=== PATIENT | female | born 1945 | race Caucasian/White ===

== ENCOUNTER 2022-08-13 19:12 | Emergency (ER) | payer MEDICARE, BC, SELFPAY ==
--- NOTE | ~2022-08-13 | CT_ITS ---
CT HEAD WITHOUT IV CONTRAST CT CERVICAL SPINE WITHOUT IV CONTRAST CT MAXILLOFACIAL WITHOUT IV CONTRAST INDICATION: Fall, LOC COMPARISON: None TECHNIQUE: Multidetector CT acquisitions of the head, maxillofacial region, and cervical spine were obtained without IV contrast. Multiplanar reformats were acquired and utilized for image interpretation. DLP: 1313 mGy-cm FINDINGS: HEAD: Small high density foci within the left frontal lobe with minor surrounding edema is most consistent with hemorrhagic foci. Minimal eccentric thickening of the falx anteriorly to the left of midline suspicious for minor subdural hematoma. Tiny hemorrhagic foci right frontal lobe as well. No overlying fracture. No extra-axial collection otherwise. No midline shift or mass effect. Chairez to white matter differentiation is diffusely maintained without evidence of an evolved acute territorial infarct. The basilar cisterns are preserved. Subcortical and periventricular white matter hypoattenuation is suggestive of mild small vessel ischemic disease. No soft tissue or osseous abnormality. The mastoid air cells and paranasal sinuses are well-aerated. MAXILLOFACIAL: The mandible, maxilla, pterygoid plates, nasal bones, zygomatic arches, paranasal sinus leyva, and bony orbits are intact. No acute osseous abnormality within the maxillofacial region. The paranasal sinuses and mastoid air cells remain well-aerated. The globes and extra-ocular musculature is intact. No significant soft tissue findings. CERVICAL SPINE: There is anatomic alignment of the vertebral bodies and posterior elements. Relative pronounced diffuse advanced spondylosis throughout. There is no acute fracture and there is no acute subluxation. The craniocervical and atlantoaxial articulations are normal. There is no prevertebral soft tissue swelling. No significant soft tissue abnormality within the neck. The visualized lung apices are clear. CT/CT facial bones wo IV con IMPRESSION: 1. Small bifrontal hemorrhagic foci left greater than right. Small subdural hematoma. No significant mass effect 2. No acute osseous abnormality within the cervical spine. 3. No acute osseous abnormality within the maxillofacial region. This critical result was called by sheet rock hanger staff at approximately 9:45 PM on the date of exam
--- NOTE | ~2022-08-13 | CT_ITS ---
CT HEAD WITHOUT IV CONTRAST CT CERVICAL SPINE WITHOUT IV CONTRAST CT MAXILLOFACIAL WITHOUT IV CONTRAST INDICATION: Fall, LOC COMPARISON: None TECHNIQUE: Multidetector CT acquisitions of the head, maxillofacial region, and cervical spine were obtained without IV contrast. Multiplanar reformats were acquired and utilized for image interpretation. DLP: 1313 mGy-cm FINDINGS: HEAD: Small high density foci within the left frontal lobe with minor surrounding edema is most consistent with hemorrhagic foci. Minimal eccentric thickening of the falx anteriorly to the left of midline suspicious for minor subdural hematoma. Tiny hemorrhagic foci right frontal lobe as well. No overlying fracture. No extra-axial collection otherwise. No midline shift or mass effect. Chairez to white matter differentiation is diffusely maintained without evidence of an evolved acute territorial infarct. The basilar cisterns are preserved. Subcortical and periventricular white matter hypoattenuation is suggestive of mild small vessel ischemic disease. No soft tissue or osseous abnormality. The mastoid air cells and paranasal sinuses are well-aerated. MAXILLOFACIAL: The mandible, maxilla, pterygoid plates, nasal bones, zygomatic arches, paranasal sinus leyva, and bony orbits are intact. No acute osseous abnormality within the maxillofacial region. The paranasal sinuses and mastoid air cells remain well-aerated. The globes and extra-ocular musculature is intact. No significant soft tissue findings. CERVICAL SPINE: There is anatomic alignment of the vertebral bodies and posterior elements. Relative pronounced diffuse advanced spondylosis throughout. There is no acute fracture and there is no acute subluxation. The craniocervical and atlantoaxial articulations are normal. There is no prevertebral soft tissue swelling. No significant soft tissue abnormality within the neck. The visualized lung apices are clear. CT/CT head/brain wo IV con IMPRESSION: 1. Small bifrontal hemorrhagic foci left greater than right. Small subdural hematoma. No significant mass effect 2. No acute osseous abnormality within the cervical spine. 3. No acute osseous abnormality within the maxillofacial region. This critical result was called by geography department chair staff at approximately 9:45 PM on the date of exam
--- NOTE | ~2022-08-13 | CT_ITS ---
CT HEAD WITHOUT IV CONTRAST CT CERVICAL SPINE WITHOUT IV CONTRAST CT MAXILLOFACIAL WITHOUT IV CONTRAST INDICATION: Fall, LOC COMPARISON: None TECHNIQUE: Multidetector CT acquisitions of the head, maxillofacial region, and cervical spine were obtained without IV contrast. Multiplanar reformats were acquired and utilized for image interpretation. DLP: 1313 mGy-cm FINDINGS: HEAD: Small high density foci within the left frontal lobe with minor surrounding edema is most consistent with hemorrhagic foci. Minimal eccentric thickening of the falx anteriorly to the left of midline suspicious for minor subdural hematoma. Tiny hemorrhagic foci right frontal lobe as well. No overlying fracture. No extra-axial collection otherwise. No midline shift or mass effect. Chairez to white matter differentiation is diffusely maintained without evidence of an evolved acute territorial infarct. The basilar cisterns are preserved. Subcortical and periventricular white matter hypoattenuation is suggestive of mild small vessel ischemic disease. No soft tissue or osseous abnormality. The mastoid air cells and paranasal sinuses are well-aerated. MAXILLOFACIAL: The mandible, maxilla, pterygoid plates, nasal bones, zygomatic arches, paranasal sinus leyva, and bony orbits are intact. No acute osseous abnormality within the maxillofacial region. The paranasal sinuses and mastoid air cells remain well-aerated. The globes and extra-ocular musculature is intact. No significant soft tissue findings. CERVICAL SPINE: There is anatomic alignment of the vertebral bodies and posterior elements. Relative pronounced diffuse advanced spondylosis throughout. There is no acute fracture and there is no acute subluxation. The craniocervical and atlantoaxial articulations are normal. There is no prevertebral soft tissue swelling. No significant soft tissue abnormality within the neck. The visualized lung apices are clear. CT/CT cervical spine wo IV con IMPRESSION: 1. Small bifrontal hemorrhagic foci left greater than right. Small subdural hematoma. No significant mass effect 2. No acute osseous abnormality within the cervical spine. 3. No acute osseous abnormality within the maxillofacial region. This critical result was called by litigation counsel staff at approximately 9:45 PM on the date of exam
--- NOTE | ~2022-08-13 | XR_ITS ---
EXAMINATION: XR SHOULDER, LEFT CLINICAL INFORMATION: Pain. COMPARISON: None TECHNIQUE: Three views of the left shoulder. FINDINGS: No fracture. Glenohumeral and acromioclavicular alignment is anatomic. Small marginal osteophytes along the acromioclavicular and glenohumeral joints. No abnormal soft tissue calcifications. XR/XR shoulder LT min 2V IMPRESSION: No acute fracture or dislocation.
[2022-08-13 19:20] VITALS: BP 154/68; PULSE 71; RESP 18; TEMP 36.7; O2SAT 97
--- NOTE | 2022-08-13 19:22 | ECG_ITS ---
Test Reason : SYNCOPE Blood Pressure : / mmHG Vent. Rate : 071 BPM Atrial Rate : 071 BPM P-R Int : 182 ms QRS Dur : 082 ms QT Int : 430 ms P-R-T Axes : 064 013 098 degrees QTc Int : 467 ms Normal sinus rhythm Right atrial enlargement Nonspecific T wave abnormality Abnormal ECG No previous ECGs available Referred By: Cami Mc Electronically Signed By:CHRISTIANO MONDRAGON MD
[2022-08-13 19:24] VITALS: BP 148/74; PULSE 88; O2SAT 100; BMI 24.7
--- NOTE | 2022-08-13 19:34 | ED_ITS ---
HPI - Fall General Chief Complaint: Fall Stated Complaint: FALL, +HEADSTRIKE, +LOC. -THINNERS Time Seen by Provider: 08/13/22 19:18 Source: patient and EMS Mode of arrival: EMS History of Present Illness HPI Narrative: 76-year-old female with history of hypertension arrives via EMS after 3hr extraction from [place] after she fell. Patient is here visiting her daughter from [place]. She states that she was coming down the hill and started going faster and faster and then I fell forward and struck my head on a rock patient denies pain on any hands arms or chest wall at this time. Patient only reports aspirin. As per EMS report patient had to be extracted via ATVs. Related Data Allergies Allergy/AdvReac Type Severity Reaction Status Date / Time No Known Allergies Allergy Verified 08/13/22 19:29 Review of Systems 2 Review of Systems: Pertinent positives and negatives as stated in HPI 10 point review of systems is otherwise negative. PMFSH Past Medical History Source: nursing notes reviewed Social History Social History Advance Directives: No Physical Exam Vital Signs: Vital Signs: Last Vital Signs Temp 97.8 F 08/13/22 21:06 Pulse 71 08/13/22 21:06 Resp 16 08/13/22 21:06 BP 165/75 H 08/13/22 21:06 Pulse Ox 97 08/13/22 21:06 O2 Del Method 08/13/22 21:06 BMI result Body Mass Index 24.7 Blood Thinners: 81 mg aspirin PRIMARY SURVEY A: Airway intact B: Bilateral, symmetrical breath sounds C: Bilateral DP/PT/femoral/radial palpable pulses symmetrical, ABD soft/ non- distended, PELVIS: stable/non-tender BP: 154/60 D: GCS-15, but patient is noted to be repeating herself, motor and sensory grossly intact, FAST not performed E: No back abrasions, no cervical/thoracic/lumbar vertebral tenderness/step-off, JAYLEN- deferred SECONDARY SURVEY HEAD: NC/AT, +laceration left forehead/contusions noted; EARS: no hemotympanum; EYES: 2mm PERRLA, EOMI NOSE: no deformity, wnl; OROPHARYNX: able to open mouth and tongue is midline without laceration FACE: without abrasions, lacerations, contusions, or ttp NECK: c-collar, no cervical spine tenderness; CHEST WALL/THORAX: no clavicle deformity or ttp, no sternum or rib deformity, no crepitus and no ttp RUE: fROM at shoulder/elbow/wrist and neurovascular intact, no deformity, no abrasions/lacerations, cap refill <3s LUE: fROM at shoulder/elbow/wrist and neurovascular intact, no deformity, no abrasions/lacerations, cap refill <3s ABD: soft, non-tender, non-distended PELVIS: stable, non-tender : external genitalia grossly within normal limits RLE: fROM at hip/knee/ankle neurovascular intact LLE: fROM at hip/knee/ankle neurovascular intact ROS: 10 point review of systems has been completed. Please refer to HPI for pertinent negative and positives. A/P: 76-year-old female with history and clinical presentation consistent with traumatic fall involving LOC and [place] 3 [place] in [place] emergency room. Neuro appears to be intact although patient is noted to be repeating herself but otherwise GCS-15 and alert and oriented x4. - Labs (CBC, CMP, Troponin, PT/INR, PTT) - CT: head, c-spine, Thorax w/wo contrast and T-spine recon, Abd/pelvis w/wo contrast and L-spine recon - XR <shoulder> - Urinalysis - Tetanus - Consult <[facility]> Course Course Course Narrative: 76-year-old female with history and clinical presentation consistent with mechanical fall resulting in loss of consciousness and on review of all investigations patient has a reactive leukocytosis with CT scan that demonstrates small bifrontal hemorrhagic foci with the left greater than the right as well as a small subdural hematoma. I discussed the case with [facility], Dr. Borden, who accepts transfer as a trauma consult. Patient was informed of all results and the plan for transfer and she is agreeable and understands. MDM - Fall Lab Data Result diagrams: 08/13/22 19:40 08/13/22 19:40 Labs: Lab Results 08/13/22 08/13/22 08/13/22 Range/Units 19:40 19:40 19:40 WBC 13.4 H (4.8-10.8) X10*3/uL RBC 4.34 (4.20-5.50) X10*6/uL Hgb 13.1 (12.0-16.0) g/dl Hct 38.5 (37.0-47.0) % MCV 88.7 (80.0-98.0) fL MCH 30.2 (27.0-33.0) pg MCHC 34.0 (31.0-35.0) g/dl RDW 13.0 (11.0-16.0) % Plt Count 314 (160-400) X10*3/uL MPV 9.4 (9.4-12.3) fL Immature Gran % (Auto) 0.3 (0.0-0.4) % Neut % (Auto) 81.4 H (45-73) % Lymph % (Auto) 11.5 L (20-40) % [place] % (Auto) 6.0 (2-11) % Eos % (Auto) 0.4 (0-4) % Baso % (Auto) 0.4 (0-2) % Lymph # (Auto) 1.5 (1.2-4.9) X10*3/uL [place] # (Auto) 0.8 (0.1-1.2) X10*3/uL Eos # (Auto) 0.1 (0.0-0.4) X10*3/uL Baso # (Auto) 0.1 (0.0-0.2) X10*3/uL Abs Immat Gran (auto) 0.04 H (0.00-0.03) X10*3/uL Absolute Neuts (auto) 10.9 H (2.0-8.3) x10*3/uL Absolute Nucleated RBC 0.000 (0.0-0.012) X10*3/uL Nucleated RBC % (auto) 0.0 (0.0-0.2) /100WBC PT 11.1 (10.0-13.1) SEC INR 1.0 (0.9-1.1) Sodium 142 (135-145) mmol/L Potassium 3.5 (3.3-5.1) mmol/L Chloride 106 (96-108) mmol/L Carbon Dioxide 22 (22-29) mmol/L Anion Gap 18 (12-20) BUN 26 H (9-16) mg/dL Creatinine 0.85 (0.5-1.4) mg/dL Estim Creat Clear Calc 51.3 Estimated GFR > 60 Random Glucose 92 (60-115) mg/dL Calcium 9.2 (8.4-10.2) mg/dL Total Bilirubin 0.3 (0.0-1.0) mg/dL AST 22 (5-31) U/L ALT 17 (0-31) U/L Alkaline Phosphatase 98 (39-117) U/L Total Creatine Kinase 82 (26-140) U/L Troponin I High Sens (<3.5-17.0) ng/L Total Protein 6.8 (6.5-8.0) g/dL Albumin 4.6 (3.5-5.0) g/dL Urine Color Urine Appearance Urine pH (5.0-9.0) Ur Specific [place] (1.005-1.025) Urine Protein (Neg-Trace) mg/dL Urine Glucose (UA) (Negative) mg/dL Urine Ketones (Negative) mg/dL Urine Blood (Negative) Urine Nitrite (Negative) Ur Leukocyte Esterase (Negative) Urine RBC (0-2) /HPF Urine WBC (0-5) /HPF Ur Squamous Epith Cells (0-2) /HPF Urine Bacteria (None Seen) Hyaline Casts (0-2) /LPF 08/13/22 08/13/22 Range/Units 19:40 21:09 WBC (4.8-10.8) X10*3/uL RBC (4.20-5.50) X10*6/uL Hgb (12.0-16.0) g/dl Hct (37.0-47.0) % MCV (80.0-98.0) fL MCH (27.0-33.0) pg MCHC (31.0-35.0) g/dl RDW (11.0-16.0) % Plt Count (160-400) X10*3/uL MPV (9.4-12.3) fL Immature Gran % (Auto) (0.0-0.4) % Neut % (Auto) (45-73) % Lymph % (Auto) (20-40) % [place] % (Auto) (2-11) % Eos % (Auto) (0-4) % Baso % (Auto) (0-2) % Lymph # (Auto) (1.2-4.9) X10*3/uL [place] # (Auto) (0.1-1.2) X10*3/uL Eos # (Auto) (0.0-0.4) X10*3/uL Baso # (Auto) (0.0-0.2) X10*3/uL Abs Immat Gran (auto) (0.00-0.03) X10*3/uL Absolute Neuts (auto) (2.0-8.3) x10*3/uL Absolute Nucleated RBC (0.0-0.012) X10*3/uL Nucleated RBC % (auto) (0.0-0.2) /100WBC PT (10.0-13.1) SEC INR (0.9-1.1) Sodium (135-145) mmol/L Potassium (3.3-5.1) mmol/L Chloride (96-108) mmol/L Carbon Dioxide (22-29) mmol/L Anion Gap (12-20) BUN (9-16) mg/dL Creatinine (0.5-1.4) mg/dL Estim Creat Clear Calc Estimated GFR Random Glucose (60-115) mg/dL Calcium (8.4-10.2) mg/dL Total Bilirubin (0.0-1.0) mg/dL AST (5-31) U/L ALT (0-31) U/L Alkaline Phosphatase (39-117) U/L Total Creatine Kinase (26-140) U/L Troponin I High Sens 5.3 (<3.5-17.0) ng/L Total Protein (6.5-8.0) g/dL Albumin (3.5-5.0) g/dL Urine Color Yellow Urine Appearance Clear Urine pH 6.5 (5.0-9.0) Ur Specific [place] 1.015 (1.005-1.025) Urine Protein Negative (Neg-Trace) mg/dL Urine Glucose (UA) Negative (Negative) mg/dL Urine Ketones 15 (Negative) mg/dL Urine Blood Negative (Negative) Urine Nitrite Negative (Negative) Ur Leukocyte Esterase Small (1+) H (Negative) Urine RBC 0-2 (0-2) /HPF Urine WBC 0-5 (0-5) /HPF Ur Squamous Epith Cells 0-2 (0-2) /HPF Urine Bacteria None Seen (None Seen) Hyaline Casts 0-2 (0-2) /LPF ECG Data Attestation: I personally reviewed and interpreted this ECG as follows: Prior ECG tracings: not available for review Interpretation: Normal sinus rhythm, HR-71, no STEMI, VA/QRS/QTC is within normal limits. Critical Care Time Critical Care Time Critical Care Time: Yes Total Critical Care Time: 30 Attestation: I personally attest to this time spent taking care of the patient. Discharge Plan Discharge Clinical Impression: Trauma, Subdural hematoma, Laceration of scalp Patient Disposition: Xfer Acute Care Hospital Transfer Details: Traumatic fall with LOC and subdural hematoma with bifrontal hemorrhagic foci
[2022-08-13 19:49] LABS: MANUAL DIFF FLAG NO
[2022-08-13 19:50] LABS: Basophils Absolute Auto 0.1 X10*3/uL (0.0-0.2); Basophils Percent Auto 0.4 % (0-2); Eosinophils Absolute Auto 0.1 X10*3/uL (0.0-0.4); Eosinophils Percent Auto 0.4 % (0-4); Hematocrit 38.5 % (37.0-47.0); Hemoglobin 13.1 g/dl (12.0-16.0); Imm Gran Abs Auto 0.04 X10*3/uL (0.00-0.03); Imm Gran Pct Auto 0.3 % (0.0-0.4); Lymphocytes Absolute Auto 1.5 X10*3/uL (1.2-4.9); Lymphocytes Percent Auto 11.5 % (20-40); Mean Corpuscular Hemoglobin 30.2 pg (27.0-33.0); Mean Corpuscular Volume 88.7 fL (80.0-98.0); Mean Platelet Volume 9.4 fL (9.4-12.3); Monocytes Absolute Auto 0.8 X10*3/uL (0.1-1.2); Neutrophils Absolute Auto 10.9 x10*3/uL (2.0-8.3); Neutrophils Percent Auto 81.4 % (45-73); Platelet Count 314 X10*3/uL (160-400); Red Blood Count 4.34 X10*6/uL (4.20-5.50); White Blood Count 13.4 X10*3/uL (4.8-10.8)
[2022-08-13 20:00] LABS: Prothrombin Time 11.1 SEC (10.0-13.1)
[2022-08-13 20:04] LABS: Alanine Aminotransferase 17 U/L (0-31); Albumin Level 4.6 g/dL (3.5-5.0); Alkaline Phosphatase 98 U/L (39-117); Anion Gap 18 (12-20); Aspartate Amino Transferase 22 U/L (5-31); Bilirubin Total 0.3 mg/dL (0.0-1.0); Blood Urea Nitrogen 26 mg/dL (9-16); Calcium 9.2 mg/dL (8.4-10.2); Carbon Dioxide 22 mmol/L (22-29); Chloride 106 mmol/L (96-108); Creatinine Clr Calc Pharmacy 51.3; Estimated Glomerular Filt Rate > 60; Glucose Random 92 mg/dL (60-115); Potassium 3.5 mmol/L (3.3-5.1); Sodium 142 mmol/L (135-145); Total Protein 6.8 g/dL (6.5-8.0)
[2022-08-13 20:13] LABS: Troponin-I High Sensitivity 5.3 ng/L (<3.5-17.0)
[2022-08-13] MEDS: Diphth,Pertus(ACell),Tet Adult 0.5 ML SYRINGE IM (20:26)
[2022-08-13] MEDS: Acetaminophen 325 MG TABLET 975 MG PO (20:44)
[2022-08-13 20:53] VITALS: O2SAT 97
[2022-08-13 21:06] VITALS: BP 165/75; PULSE 71; RESP 16; TEMP 36.6; O2SAT 97
[2022-08-13 21:17] LABS: Appearance Urine Clear; Color Urine Yellow; Glucose Urine UA Negative (Negative); Leukocyte Esterase Urine Small (1+) (Negative); Nitrite Urine Negative (Negative); PH 6.5 (5.0-9.0); Specific Gravity - Urine 1.015 (1.005-1.025); UMIC TRIGGER UACC YES; Urine Blood Negative (Negative); Urine Ketones 15 mg/dL (Negative); Urine Protein Negative (Neg-Trace)
[2022-08-13 21:25] LABS: Bacteria Urine None Seen (None Seen); Hyaline Casts Urine 0-2 /LPF (0-2); RBC Urine 0-2 /HPF (0-2); Squamous Epithelial Cell Urine 0-2 /HPF (0-2); UACC Culture Trigger YES; WBC Urine 0-5 /HPF (0-5)
--- NOTE | 2022-08-13 22:08 | PC.NURSE ---
[facility]'s Transfer Line called at 2145 per . At 2154 accepted patient to the Trauma ER. [facility] called at 2158 for a stat ALS transfer per . EMS arrived at 2210.
[2022-08-13 22:19] LABS: COVID-19 Test Negative (Negative)
== END 2022-08-13 23:19 | disposition short-term general hospital (02) ==
PROVIDERS: Physician Assistant; Emergency Provider Student in an Organized Health Care Education/Training Program
DX: S06.5X9A Traumatic subdural hemorrhage with loss of consciousness of unspecified duration, initial encounter (principal); S01.81XA Laceration without foreign body of other part of head, initial encounter; W17.81XA Fall down embankment (hill), initial encounter; Y93.31 Activity, mountain climbing, rock climbing and wall climbing; Y92.828 Other wilderness area as the place of occurrence of the external cause; Y99.8 Other external cause status; Z20.822 Contact with and (suspected) exposure to COVID-19; Z79.82 Long term (current) use of aspirin
CPT/HCPCS: 36415; 70450; 70486; 72125; 73030; 80053; 81001; 82550; 84484; 85025; 85610; 87086; 87635; 90471; 90715; 93005; 99285